=== PATIENT | male | born 1950 | race Caucasian/White ===

== ENCOUNTER 2016-08-04 07:36 | Outpatient (CLI) | payer OTHER ==
[2016-08-04 08:19] LABS: Hemoglobin A1c 10.4 % (4.0-6.0)
== END 2016-08-04 07:37 | disposition home or self-care (01) ==
LOC: MADLAB 07:36
DX: Z00.00 Encounter for general adult medical examination without abnormal findings (principal)
CPT/HCPCS: 36415; 83036

== ENCOUNTER 2017-07-18 08:23 | Outpatient (CLI) | payer OTHER ==
[2017-07-18 17:47] LABS: Hemoglobin A1c 10.7 % (4.0-6.0)
== END 2017-07-18 08:24 | disposition home or self-care (01) ==
LOC: MADLAB 08:23
DX: Z00.00 Encounter for general adult medical examination without abnormal findings (principal)
CPT/HCPCS: 36415; 83036